=== PATIENT | male | born 1955 | race Caucasian/White ===

== ENCOUNTER 2017-01-30 02:17 | Emergency (ER) | payer MEDICARE, MEDICAID, OTHER ==
[~2017-01-30] VITALS: Ht 170.2 cm; Wt 65.9 kg
[2017-01-30] MEDS ORDERED: IPRATROPIUM BROM3 M1 IH (02:19)
[2017-01-30] MEDS ORDERED: PROAIR HFA0.09 MG/AC IH (02:19)
[2017-01-30] MEDS ORDERED: 00186-0370-20 IH (02:20)
[2017-01-30] MEDS ORDERED: CELEXA40 MG PO (02:21)
[2017-01-30] MEDS ORDERED: VISTARIL50 MG PO (02:21)
[2017-01-30] MEDS ORDERED: MULTI-VITAMIN W1 TA1 PO (02:22)
[2017-01-30] MEDS ORDERED: ASPIRIN 81M81 MG/TA2 PO (02:22)
[2017-01-30 02:23] VITALS: TEMP 98.8
[2017-01-30 03:12] LABS: BASO % 0.4 % (0.0-2.0); EOS % 0.4 % (0-4.0); GRAN # 8.5 (1.4-6.5); GRAN % 82.9 % (42.2-75.2); HEMATOCRIT 43.9 % (42.0-52.0); HEMOGLOBIN 14.8 g/dl (13.5-18.0); LYMPH % 9.3 % (20.0-51.0); MEAN CELL VOLUME 85 fl (80.0-100.0); MEAN CORPUSCULAR HEMOGLOBIN 29 pg (27.0-31.0); MEAN CORPUSCULAR HGB CONC 34 g/dl (33.0-37.0); MONO # 0.7 (0.1-0.6); MONO % 6.6 % (1.7-9.3); PLATELET COUNT 185 K/mm3 (130-400); RED BLOOD COUNT 5.18 M/mm3 (4.20-5.60); REDCELL DISTRIBUTION WIDTH-CV 13.2 % (11.5-14.5); WHITE BLOOD COUNT 10.2 K/mm3 (4.8-10.8)
[2017-01-30 03:15] LABS: ADJUSTED CALCIUM 8.6 mg/dL (8.4-10.2); ALANINE AMINOTRANSFERASE 30 U/L (21-72); ALBUMIN 4.3 gm/dL (3.5-5.0); ALKALINE PHOSPHATASE 77 U/L (50-136); ANION GAP 12 mmol/L (7-16); BILIRUBIN,TOTAL 1.1 mg/dL (0.0-1.0); BLOOD UREA NITROGEN 16 mg/dL (9-20); CALCIUM 8.8 mg/dL (8.4-10.2); CARBON DIOXIDE 29 mmol/L (22-30); CHLORIDE 99 mmol/L (98-107); CREATININE, serum 1.03 mg/dL (0.66-1.25); GLUCOSE 109 mg/dL (74-106); POTASSIUM 4.7 mmol/L (3.4-5.0); SODIUM 140 mmol/L (137-145); TOTAL PROTEIN 7.3 gm/dL (6.4-8.2)
[2017-01-30 03:26] LABS: B-TYPE NATRIURETIC PEPTIDE 45 pg/mL (0-125)
[2017-01-30] MEDS ORDERED: PREDNISONE20 MG PO (04:04)
[2017-01-30 04:06] LABS: TROPONIN-I < 0.012 ng/mL (0.000-0.034)
[2017-01-30 04:17] VITALS: BP 132/84; PULSE 101
== END 2017-01-30 04:18 | disposition home or self-care (01) ==
LOC: COL.ER 02:17
PROVIDERS: Family Medicine
DX: J44.1 Chronic obstructive pulmonary disease with (acute) exacerbation (principal); Z87.891 Personal history of nicotine dependence
CPT/HCPCS: J7030

== ENCOUNTER 2017-02-03 01:22 | Inpatient (IN) | payer MEDICARE, MEDICAID ==
[~2017-02-03] VITALS: Ht 170.2 cm; Wt 66.3 kg
[~2017-02-03 01:22] MED LIST: 00186-0370-20 IH; ASPIRIN 81M81 MG/TA2 PO; CELEXA40 MG PO; IPRATROPIUM BROM3 M1 IH; MULTI-VITAMIN W1 TA1 PO; PREDNISONE20 MG PO; PROAIR HFA0.09 MG/AC IH; VISTARIL50 MG PO
[2017-02-03 01:57] LABS: BASO % 0.3 % (0.0-2.0); EOS % 0.3 % (0-4.0); GRAN # 7.1 (1.4-6.5); GRAN % 74.5 % (42.2-75.2); HEMATOCRIT 45.8 % (42.0-52.0); HEMOGLOBIN 15.2 g/dl (13.5-18.0); LYMPH # 1.2 (1.2-3.4); LYMPH % 12.4 % (20.0-51.0); MEAN CELL VOLUME 86 fl (80.0-100.0); MEAN CORPUSCULAR HEMOGLOBIN 28 pg (27.0-31.0); MEAN CORPUSCULAR HGB CONC 33 g/dl (33.0-37.0); MEAN PLATELET VOLUME 8.7 fl (7.4-10.4); MONO # 1.2 (0.1-0.6); MONO % 12.1 % (1.7-9.3); PLATELET COUNT 250 K/mm3 (130-400); RED BLOOD COUNT 5.35 M/mm3 (4.20-5.60); REDCELL DISTRIBUTION WIDTH-CV 13.3 % (11.5-14.5); WHITE BLOOD COUNT 9.6 K/mm3 (4.8-10.8)
[2017-02-03 02:06] LABS: ADJUSTED CALCIUM 9.3 mg/dL (8.4-10.2); ALANINE AMINOTRANSFERASE 30 U/L (21-72); ALBUMIN 4.3 gm/dL (3.5-5.0); ALKALINE PHOSPHATASE 80 U/L (50-136); ANION GAP 14 mmol/L (7-16); BILIRUBIN,TOTAL 0.7 mg/dL (0.0-1.0); BLOOD UREA NITROGEN 22 mg/dL (9-20); CALCIUM 9.5 mg/dL (8.4-10.2); CARBON DIOXIDE 28 mmol/L (22-30); CHLORIDE 99 mmol/L (98-107); CREATININE, serum 1.05 mg/dL (0.66-1.25); GLUCOSE 86 mg/dL (74-106); POTASSIUM 4.1 mmol/L (3.4-5.0); SODIUM 142 mmol/L (137-145); TOTAL PROTEIN 7.7 gm/dL (6.4-8.2)
[2017-02-03 02:17] LABS: B-TYPE NATRIURETIC PEPTIDE 69 pg/mL (0-125)
[2017-02-03 02:19] LABS: TROPONIN-I < 0.012 ng/mL (0.000-0.034)
[2017-02-03 05:28] VITALS: BP 122/88; PULSE 113; TEMP 97.6
[2017-02-03 08:25] VITALS: BP 132/83; PULSE 76; TEMP 97.9
[2017-02-03] MEDS ORDERED: LEVAQUIN 750MG750 M1 PO (12:13)
[2017-02-03] MEDS ORDERED: PREDNISONE20 MG PO (12:14)
[2017-02-03] MEDS ORDERED: RT SPIRIVA18 MCG IH (12:15)
[2017-02-03] MEDS ORDERED: THEO-DUR 3300 MG/TAB PO (12:16)
== END 2017-02-03 16:10 | disposition home or self-care (01) | DRG 190 ==
LOC: COL.ER 01:22 → ICU 04:02
PROVIDERS: Emergency Medicine
DX: J44.0 Chronic obstructive pulmonary disease with (acute) lower respiratory infection (principal); J18.9 Pneumonia, unspecified organism; J44.1 Chronic obstructive pulmonary disease with (acute) exacerbation; I10 Essential (primary) hypertension; Z87.891 Personal history of nicotine dependence
CPT/HCPCS: J1650; J1956; J2405; J2930; J7030